=== PATIENT | female | born 1965 | race Caucasian/White ===

== ENCOUNTER 2017-09-21 08:53 | Emergency (ER) | payer OTHER ==
[2017-09-21 09:10] VITALS: BP 145/87
--- NOTE | 2017-09-21 10:02 | UC ---
Respiratory Complaint HPI - HPI Summary HPI Summary: Pt presents with dry cough, feeling SOB, fatigue, and body aches for the last 2 days. She tells me that her daughter is sick with similar symptoms. She says that she has a history of asthma and this feels like when she was a kid and had an exacerbation. She does not have any inhalers at home that she uses. Has not taken anything for her symptoms. Denies fever, chills, chest pain, palpitations , abdominal pain, n/v/d/c. - History of Current Complaint Chief Complaint: UCGeneralIllness Stated Complaint: FEVER SOB FATIGUE Time Seen by Provider: 09/21/17 09:59 Hx Obtained From: Patient ?: No Onset/Duration: Gradual Onset Pain Intensity: 0 Character: Cough: Nonproductive Aggravating Factors: Deep Breaths - Allergies/Home Medications Allergies/Adverse Reactions: Allergies Allergy/AdvReac Type Severity Reaction Status Date / Time No Known Allergies Allergy Verified 09/21/17 09:10 Home Medications: Home Medications Aspirin [Goodsense Aspirin] 650 mg PO Q12HR PRN 09/21/17 [History Confirmed 01/31] PMH/Surg Hx/FS Hx/Imm Hx Previously Healthy: Yes Respiratory History: Asthma - Surgical History Surgical History: Yes Surgery Procedure, Year, and Place: knee surgery 98 - Family History Known Family History: Positive: Cardiac Disease, Hypertension, Respiratory Disease - Social History Occupation: Employed Full-time Lives: With Family Alcohol Use: Weekly Substance Use Type: None Smoking Status (MU): Never Smoked Tobacco - Immunization History Most Recent Tetanus Shot: uknown Review of Systems Constitutional: Fatigue, Other - Body aches Skin: Negative Eyes: Negative ENT: Negative Respiratory: Shortness Of Breath, Cough Cardiovascular: Negative Gastrointestinal: Negative Neurovascular: Negative Musculoskeletal: Negative Neurological: Negative Psychological: Negative All Other Systems Reviewed And Are Negative: Yes Physical Exam Triage Information Reviewed: Yes Appearance: Well-Appearing, No Pain Distress, Well-Nourished Vital Signs: Initial Vital Signs Temp 97.7 F 09/21/17 09:04 Pulse 106 09/21/17 09:04 Resp 20 09/21/17 09:04 BP 145/87 09/21/17 09:04 Pulse Ox 100 09/21/17 09:04 Vital Signs Reviewed: Yes Eyes: Positive: Conjunctiva Clear. Negative: Conjunctiva Inflamed, Discharge ENT: Positive: Hearing grossly normal, Pharynx normal, TMs normal, Uvula midline. Negative: Pharyngeal erythema, Nasal congestion, Nasal drainage, TM bulging, TM dull, TM red, Tonsillar swelling, Tonsillar exudate, Hoarse voice, Sinus tenderness Neck: Positive: Supple, Nontender, No Lymphadenopathy Respiratory: Positive: Lungs clear, No respiratory distress, No accessory muscle use, Wheezing - Mild throughout. Negative: Crackles Cardiovascular: Positive: RRR, No Murmur, Pulses Normal Neurological: Positive: Alert Psychological: Positive: Age Appropriate Behavior Skin: Negative: rashes UC Diagnostic Evaluation - Laboratory O2 Sat by Pulse Oximetry: 100 Re-Evaluation - Re-Evaluation First Eval Re-Evaluation Time: 10:58 Change: Improved Comment: Pt reports significantly improvement in ease of breathing. Lung sounds improved with no wheezing appreciated Respiratory Course/Dx - Course Course Of Treatment: Flu A positive. Duoneb with significant improvement. Rest. Fluids. Albuterol inhaler. - Differential Dx/Diagnosis Provider Diagnoses: Influenza A. Asthma exacerbation Discharge - Discharge Plan Condition: Stable Disposition: HOME Prescriptions: Albuterol HFA INHALER* [Ventolin HFA Inhaler*] 1 - 2 puff INH Q6H PRN #1 mdi PRN Reason: Sob/Wheezing Patient Education Materials: Influenza (ED) Referrals: No Primary Care Phys,NOPCP [Primary Care Provider] - Additional Instructions: If you develop a fever, shortness of breath, chest pain, new or worsening symptoms - please call your PCP or go to the ED. Your blood pressure was high at todays visit. Please see your primary provider within 4 weeks for recheck and re-evaluation.
[2017-09-21] MEDS ORDERED: Albuterol/Ipratropium NEB.SOL* Albuterol 2.5 MG/Ipratropium 0.5 MG 3 ML INH ONE (10:08)
== END 2017-09-21 11:10 | disposition home or self-care (01) ==
LOC: UCEAST 08:53
DX: J11.1 Influenza due to unidentified influenza virus with other respiratory manifestations (principal); J45.901 Unspecified asthma with (acute) exacerbation
CPT/HCPCS: 87502; 99212; A9270-GY; G0463